=== PATIENT | male | born 1955 | race Caucasian/White ===

== ENCOUNTER → 2022-02-18 12:28 | Outpatient (CLI) | payer MEDICARE, OTHER, SELFPAY ==
--- NOTE | 2022-02-18 | DI.RAD.S_ITS ---
PROCEDURE: XR CERVICAL SPINE 2V OR 3V INDICATIONS: NECK PAIN TECHNIQUE: Three views of the cervical spine were acquired. COMPARISON: None. FINDINGS: Bones: No acute fractures or dislocations to the C7-T1 disc space level. The lateral masses of C1 appear intact on the odontoid view. No suspicious bony lesions. Moderate disc space narrowing is seen at the C5-6 level with mild degenerative endplate changes. Mild to moderate multilevel facet and uncovertebral joint hypertrophy is seen. No cervical ribs. Soft tissues: No prevertebral soft tissue swelling. IMPRESSION: Mild spondylosis. No acute osseous abnormality. If the symptoms persist, consider cross sectional imaging such as MRI or CT for further assessment. Dictated by: David Thacker M.D. on 02/18/2022 at 13:54 Approved by: David Thacker M.D. on 02/18/2022 at 13:55
--- NOTE | 2022-02-18 | DI.RAD.S_ITS ---
PROCEDURE: FL BARIUM SWALLOW INDICATIONS: Dysphagia, unspecified COMPARISON: None. FINDINGS: Function: Contrast passes through the esophagus without delay however poor contractility of the esophagus throughout its course is noted.. Morphology: The thoracic esophagus is patulous and dilated measuring 2-3 cm in diameter with a possible filling defect versus ulceration along the left aspect of the distal esophagus. IMPRESSION: 1. Patulous and dilated adynamic esophagus. Considerations include scleroderma. No obstruction at the gastroesophageal junction. 2. Filling defect suggesting a mass versus ulceration on the left margin of the distal 3rd of the esophagus. 3. Recommend endoscopy. Dictated by: Hugo Loera M.D. on 02/19/2022 at 14:36 Approved by: Hugo Loera M.D. on 02/19/2022 at 16:55
== END ==
PROVIDERS: PCP Internal Medicine; Referring Provider Internal Medicine; Visit Provider Internal Medicine
DX: M47.812 Spondylosis without myelopathy or radiculopathy, cervical region (principal); K22.89 Other specified disease of esophagus; R13.10 Dysphagia, unspecified; M54.2 Cervicalgia
CPT/HCPCS: 72040; 74220

== ENCOUNTER → 2022-03-14 13:08 | Outpatient (CLI) | payer MEDICARE, OTHER, SELFPAY ==
[2022-03-14 14:51] LABS: COVID19 -Nasal RAPID Negative (Negative)
== END ==
PROVIDERS: PCP Internal Medicine; Visit Provider Surgery
DX: Z01.812 Encounter for preprocedural laboratory examination (principal); Z20.822 Contact with and (suspected) exposure to COVID-19
CPT/HCPCS: 87635; C9803

== ENCOUNTER 2022-03-17 11:09 | Day surgery (SDC) | payer MEDICARE, OTHER, SELFPAY ==
[2022-03-17] VITALS (7 sets, daily range): BP systolic 98–129; BP diastolic 61–78; PULSE 60–69; RESP 12–16; TEMP 36–36.6; O2SAT 95–100; BMI 26.2
--- NOTE | 2022-03-17 | PATH_ITS ---
[facility] Accession Number: [id number] . 01 Material submitted: . PART A: esophagus - DISTAL ESOPHAGUS PART B: esophagus - MID ESOPHAGUS . 01 Diagnosis: A. Distal Esophagus: Columnar mucosa with specialized intestinal metaplasia, consistent with Burns's esophagus. Negative for dysplasia and malignancy. . B. Mid Esophagus: Columnar mucosa with specialized intestinal metaplasia, consistent with Burns's esophagus. Negative for dysplasia and malignancy. V 03/19/2022 0906 Local . 01 Electronically signed: . Yomaira Castaneda MD, Pathologist NPI- [id number] . 01 Gross description: . Part A: DISTAL ESOPHAGUS: Received in formalin are 2 fragment(s) of stahl, soft tissue measuring 0.5 x 0.3 x 0.2 cm to 0.3 x 0.2 x 0.1 cm submitted entirely in 1 cassette(s) Part B: MID ESOPHAGUS: Received in formalin are 4 fragment(s) of stahl, soft tissue measuring 0.3 x 0.2 x 0.1 cm to 0.1 x 0.1 x 0.1 cm submitted entirely in 1 cassette(s) /QBJ 03/18/2022 0825 Local . 01 Pathologist provided ICD-10: K59.00, K22.70 . 01 CPT . 385345, 441650 Specimen Comment: A courtesy copy of this report has been sent to [phone] Performed at: 01 [facility] [address] [place] [id number] MD Low Saab MD Phone: [phone]
[2022-03-17] MEDS: SODIUM CHLORIDE 0.9% 1,000 ML 150 ML IV (11:36)
--- NOTE | 2022-03-17 12:12 | PM.HP.1 ---
History of Present Illness History of Present Illness Date Patient Seen: 03/17/22 Time Patient Seen: 12:12 Chief complaint: EGD W/ Biopsy Narrative: I reviewed my office note from March 04. That time he was initiated on twice daily omeprazole. He is doing very well in almost asymptomatic at this point. Patient History Medical History Abnormal esophagram Back pain Chest pain Constipation Family & Social History Social History: household members spouse Tobacco & Substance use: Smoking Status Never smoker alcohol intake frequency a few times a week Substance Use Type does not use Meds Home Medications and Allergies Home Medications Medication Instructions Recorded Confirmed Type cyclobenzaprine 5 mg tablet 5 mg PO BEDTIME PRN 03/17/22 03/17/22 History omeprazole 20 mg capsule,delayed 20 mg PO BID 03/17/22 03/17/22 History release Allergies Allergy/AdvReac Type Severity Reaction Status Date / Time erythromycin base AdvReac Mild Gastrointestinal Verified 03/17/22 11:22 Upset Review of Systems Review of Systems ROS: Yes All systems reviewed with the patient and are negative except as otherwise documented Exam Vital Signs (past 8 hours): - 03/17/22 11:38 Temperature 96.8 F L Pulse Rate 64 Respiratory Rate 16 Blood Pressure 129/78 Pulse Oximetry 98 Oxygen Delivery Method Room Air Const General: cooperative and comfortable Orientation: alert HENMT Head: normocephalic Ears: external ears normal Nose: external nose normal Face and sinus: normal facial exam Mouth: oral mucosae normal Eyes General: appearance normal, both eyes and all related structures Neck Neck: normal visual inspection Chest Chest: normal inspection of the chest Resp Effort & Inspection: normal respiratory effort Cardio Rate: regular rate GI Inspection: normal to inspection Skin General: no rashes or lesions noted and No jaundice Neuro General: patient alert and moves all extremities Cognition: normal cognition Speech: speech normal Extrem General: no pedal edema Psych Appearance: grossly normal Assessment & Plan Assessment & Plan narrative: 66-year-old male with chest pain and an abnormal barium esophagram. Diagnostic EGD is pursued today. Time Spent With Patient Critical Care time: I spent a total of [] minutes of critical care time on this patient's care today; this time is exclusive of procedural time.
--- NOTE | 2022-03-17 12:14 | PM.PREOP ---
Pre-operative Note COVID-19 COVID-19 status: Negative Result date/Date tested (Pos, Neg/Pending): 03/14/22 Criteria for continued procedure: Possibility delay results in more complex future surgery or treatment Interval Note History & Physical reviewed/Exam performed by Physician: Yes Changes to H&P: Yes ASA Class (for procedural sedation): II
--- NOTE | 2022-03-17 12:50 | P.OP.EGD_ITS ---
Operative Date/Time/Diagnoses Date of procedure: 03/17/22 Time of procedure: 12:50 Pre-op diagnosis: Chest pain and an abnormal barium esophagram Post-op diagnosis: same Procedure & Clinicians Study performed: EGD with biopsies Same procedure as scheduled: Yes Indications: Chest pain and an abnormal barium esophagram Surgeon: Angel Luis Bonner Procedure Notes SCOAP/Timeout: Done Procedure in detail: After the risks and benefits were explained, written and verbal informed consent was obtained. The patient was brought into the procedure room and placed into the left lateral decubitus position. Please see nurse bowling floor manager notes for sedation details. The scope was introduced into the mouth through the bite block and advanced under direct visualization to the 2nd portion of the duodenum. The scope was slowly withdrawn carefully examining the mucosa for any defects or lesions. Retroflexed views were accomplished in the stomach. The stomach was decompressed, the scope was then removed from the patient who dallin erated the procedure well. Sedation minutes: 17 Complications: none Impression: 1. Duodenum: The mucosa was generally unremarkable from the bulb through into the 2nd portion. 2. Stomach: The pyloric channel was easily identified and widely patent. No associated mass or outlet obstruction. However the remainder of the stomach was very difficult to visualize. The patient simply would not retain any air and insufflation seemed impossible. I could not therefore proceed with the normal retroflexed views. I did not get a nice distended view during today's examination. Within these limitations I did not see any overt gastric pathology. 3. Esophagus: The patient had what appeared to be an exceptionally long segment of Barretts. The GE junction was at approximately 32 cm. The Barretts would be judged C13M14. Biopsies were taken from the proximal esophagus just below the upper esophageal sphincter mechanism for histopathologic confirmation of Barretts. In the left aspect of the distal esophagus there was a large ulcer going from approximately 29 cm from the incisors down to the GE junction. This had scattered areas of hyperpigmentation in the base. No obvious visible vessel. No bleeding. The edges were fairly heaped up but generally soft under the biopsy forceps. Multiple biopsies were taken from the ulcer edges. Endoscopic diagnosis 1. Large distal esophageal ulcer 2. Hiatal hernia (the precise size of set hiatal hernia was not easy to gauge with the patient's inability to retain air) 3. Long segment Barretts Post-procedure Plan for aftercare: 1. Await histopathology 2. Continue omeprazole twice daily. 3. Soft diet. 4. Contingent on histopathology further abdominal imaging and even likely endoscopic ultrasound will be required here. Disposition: PACU
--- NOTE | 2022-03-17 18:12 | SUR.PHASEII ---
Late entry: Pt slow to wake, left when ready, left in stable condition.
== END 2022-03-17 14:15 | disposition home or self-care (01) ==
PROVIDERS: PCP Internal Medicine; Referring Provider Internal Medicine Gastroenterology; Visit Provider Internal Medicine Gastroenterology
PROC: 0DJ08ZZ Inspection of Upper Intestinal Tract, Via Natural or Artificial Opening Endoscopic (ICD-10-PCS; CPT 43235; principal; 2022-03-17 12:30)
DX: R94.8 Abnormal results of function studies of other organs and systems (principal); R07.9 Chest pain, unspecified; K22.70 Barrett's esophagus without dysplasia; K44.9 Diaphragmatic hernia without obstruction or gangrene
CPT/HCPCS: 43239; J2704

== ENCOUNTER → 2022-03-27 13:50 | Outpatient (CLI) | payer MEDICARE, OTHER, SELFPAY ==
--- NOTE | 2022-03-27 | DI.MRI.S_ITS ---
PROCEDURE: MR CERVICAL SPINE WO CON INDICATIONS: Dorsalgia, unspecified TECHNIQUE: Noncontrast sagittal T1 spin echo and T2 fast spin echo, sagittal STIR, foraminal oblique sagittal T2 fast spin echo, and axial gradient echo or T2 fast spin echo through the cervical spine. COMPARISON: None. FINDINGS: Normal cervical spine vertebral body height and alignment. No suspicious focal marrow signal abnormality. Osteoarthritic changes of the right C3-C4 facet characterized by joint space narrowing and marginal osteophytosis with subchondral sclerosis as well as marrow edema adjacent to the right C3-C4 facets involving the facet pillars and extending into the pedicles. There is also edema of the adjacent periarticular soft tissues. Normal morphology and signal intensity of the cervical cord. There is no syrinx. Regional soft tissues demonstrate no acute abnormality in the absence of IV contrast. C2-C3: No spinal canal stenosis. Facet and uncovertebral hypertrophy combine to produce mild neural foraminal narrowing on the right. C3-C4: No spinal canal stenosis. Facet and uncovertebral hypertrophy combine to produce moderate neural foraminal narrowing bilaterally. C4-C5: No spinal canal stenosis. Facet and uncovertebral hypertrophy combine to produce moderate right and mild left neural foraminal stenosis. C5-C6: Mild spinal canal stenosis due to posterior disc osteophyte complex and calcified buckling of the ligamentum flavum. Facet and uncovertebral hypertrophy combine to produce severe left and mild-moderate right neural foraminal stenosis. C6-C7: No spinal canal stenosis. Moderate bilateral neural foraminal stenosis due to facet and uncovertebral hypertrophy. C7-T1: No spinal canal or neural foraminal stenosis. IMPRESSION: Mild spinal canal stenosis at C5-C6 due to posterior disc osteophyte complex and calcified buckling of the ligamentum flavum. Varying degrees of neural foraminal stenosis up to moderate, detailed above. Correlate for any corresponding radicular symptoms. Right C3-C4 facet osteoarthritis with associated periarticular bone marrow and soft tissue edema, suggestive of acute facet osteoarthropathy which can be a source of nonradicular axial neck pain. Dictated by: Shaheen Mane M.D. on 03/27/2022 at 15:01 Approved by: Shaheen Mane M.D. on 03/27/2022 at 15:06
== END ==
PROVIDERS: PCP Internal Medicine; Referring Provider Physical Medicine & Rehabilitation Pain Medicine; Visit Provider Physical Medicine & Rehabilitation Pain Medicine
DX: M47.812 Spondylosis without myelopathy or radiculopathy, cervical region (principal); M48.02 Spinal stenosis, cervical region; M54.9 Dorsalgia, unspecified
CPT/HCPCS: 72141

== ENCOUNTER → 2022-06-09 10:24 | Outpatient (CLI) | payer MEDICARE, OTHER, SELFPAY ==
[2022-06-09 12:07] LABS: COVID19 -Nasal RAPID Negative (Negative)
== END ==
PROVIDERS: PCP Internal Medicine; Visit Provider Surgery
DX: Z20.822 Contact with and (suspected) exposure to COVID-19 (principal); Z01.812 Encounter for preprocedural laboratory examination
CPT/HCPCS: 87635; C9803

== ENCOUNTER 2022-06-11 07:25 | Day surgery (SDC) | payer MEDICARE, OTHER, SELFPAY ==
--- NOTE | 2022-06-11 | PATH_ITS ---
[facility] Accession Number: [id number] No. of containers.. Tissue . 01 Material submitted: . PART A: esophagus - ESOPHAGEAL PLAQUES PART B: esophagus - BIOPSY 20 CM PART C: esophagus - BIOPSY 22 CM PART D: esophagus - BIOPSY 24 CM PART E: esophagus - BIOPSY 26 CM PART F: esophagus - BIOPSY 28 CM PART G: esophagus - BIOPSY 30 CM PART H: esophagus - BIOPSY 32 CM PART I: esophagus - BIOPSY 33 CM . 01 Clinical history: . A: R/O SAMIRA B-F: HISTORY OF DUARTE'S G-H: HX DUARTE'S @ [facility] I: HISTORY OF DUARTE'S . 01 Diagnosis: A. Esophageal Plaques, Biopsies: Samira esophagitis. Yeast forms and scant fungal hyphae morphologically consistent with Samira species seen on H/E stain. Negative for dysplasia or malignancy. . B-C: Esophagus, 20-22 cm, Biopsies: Squamocolumnar junctional mucosa with specialized intestinal metaplasia, consistent with Duarte's esophagus. Negative for dysplasia and malignancy. . D-I: Esophagus, 24-33 cm, Biopsies: Proximal gastric-type mucosa with specialized intestinal metaplasia, consistent with Duarte's esophagus. Negative for dysplasia and malignancy. [facility] 06/12/2022 0932 Local . 01 Electronically signed: . Sunday Barillas MD, PhD, Pathologist NPI- [id number] . 01 Gross description: . Part A: ESOPHAGEAL PLAQUES: Received in formalin is 1 fragment(s) of stahl, soft tissue measuring 0.2 x 0.2 x 0.2 cm submitted entirely in 1 cassette(s) Part B: BIOPSY 20 CM: Received in formalin is 1 fragment(s) of stahl, soft tissue measuring 0.2 x 0.1 x 0.1 cm submitted entirely in 1 cassette(s) Part C: BIOPSY 22 CM: Received in formalin are 4 fragment(s) of stahl, soft tissue measuring 0.1 x 0.1 x 0.1 cm to 0.2 x 0.2 x 0.2 cm submitted entirely in 1 cassette(s) Part D: BIOPSY 24 CM: Received in formalin are 3 fragment(s) of stahl, soft tissue measuring 0.1 x 0.1 x 0.1 cm to 0.3 x 0.2 x 0.1 cm submitted entirely in 1 cassette(s) Part E: BIOPSY 26 CM: Received in formalin are 2 fragment(s) of stahl, soft tissue measuring 0.1 x 0.1 x 0.1 cm to 0.3 x 0.3 x 0.2 cm submitted entirely in 1 cassette(s) Part F: BIOPSY 28 CM: Received in formalin are 3 fragment(s) of stahl, soft tissue measuring 0.1 x 0.1 x 0.1 cm to 0.3 x 0.3 x 0.2 cm submitted entirely in 1 cassette(s) Part G: BIOPSY 30 CM: Received in formalin are 3 fragment(s) of stahl, soft tissue measuring 0.1 x 0.1 x 0.1 cm to 0.3 x 0.3 x 0.2 cm submitted entirely in 1 cassette(s) Part H: BIOPSY 32 CM: Received in formalin are 3 fragment(s) of stahl, soft tissue measuring 0.1 x 0.1 x 0.1 cm to 0.3 x 0.2 x 0.2 cm submitted entirely in 1 cassette(s) Part I: BIOPSY 33 CM: Received in formalin are 3 fragment(s) of stahl, soft tissue measuring 0.1 x 0.1 x 0.1 cm to 0.2 x 0.2 x 0.2 cm submitted entirely in 1 cassette(s) /ROJELIO 06/11/2022 2249 Local . 01 Pathologist provided ICD-10: K22.70, B37.81 . 01 CPT . 749111, 693772, 684400, 844594, 994977, 346243, 602932, 932912, 841505 Specimen Comment: A courtesy copy of this report has been sent to [phone] Performed at: 01 [facility] [address] [place] [address], [place] [id number] MD Low Saab MD Phone: [phone]
[2022-06-11 07:55] VITALS: BP 111/65; PULSE 55; RESP 16; TEMP 36.1; O2SAT 98; BMI 24.6
[2022-06-11] MEDS: LACTATED RINGERS 1,000 ML 42 ML IV (08:12)
--- NOTE | 2022-06-11 08:33 | PM.HP.1 ---
History of Present Illness History of Present Illness Chief complaint: EGD Patient History Medical History (Updated 06/11/22 @ 08:17 by Ritu Hair RN) Abnormal esophagram Back pain Burns's esophageal ulceration Chest pain Constipation Epididymo-orchitis Nasal polyps Family & Social History Social History: household members spouse Tobacco & Substance use: Smoking Status Never smoker alcohol intake frequency holiday/special occasion Substance Use Type does not use Meds Home Medications and Allergies Home Medications Medication Instructions Recorded Confirmed Type cyclobenzaprine 5 mg tablet 5 mg PO BEDTIME PRN Muscle 03/17/22 06/11/22 History Relaxation omeprazole 20 mg capsule,delayed 20 mg PO BID 03/17/22 06/11/22 History release Allergies Allergy/AdvReac Type Severity Reaction Status Date / Time erythromycin base AdvReac Mild Gastrointestinal Verified 06/11/22 07:28 Upset Review of Systems Review of Systems Narrative: negative Exam Vital Signs (past 8 hours): - 06/11/22 07:55 Temperature 97.0 F L Pulse Rate 55 L Respiratory Rate 16 Blood Pressure 111/65 Pulse Oximetry 98 Oxygen Delivery Method Room Air Oxygen Delivery Method Room Air Narrative Exam Narrative: Awake alert and oriented x3, pupils equal round reactive to light, oropharynx clear, heart regular rate and rhythm, lungs clear to auscultation bilaterally, abdomen nontender and nondistended, extremities without edema, no gross neurologic deficits noted Assessment & Plan Assessment & Plan narrative: history of Burns's and esophageal ulcer for EGD Time Spent With Patient Critical Care time: I spent a total of [] minutes of critical care time on this patient's care today; this time is exclusive of procedural time.
--- NOTE | 2022-06-11 09:02 | PM.OP.EGD ---
Operative Date/Time/Diagnoses Date of procedure: 06/11/22 Procedure & Clinicians Study performed: EGD with cold biopsy Indications: History of Burns's and nonhealing esophageal ulcer Procedure Notes Procedure in detail: Prior to the procedure, history and physical was performed, and patient medications and allergies were reviewed. Preprocedure nursing history and assessment was reviewed. Patient identification and proposed procedure were verified by the physician and nurse in the procedure room. The physical status of the patient was reassessed after the procedure. After informed consent was obtained including risks, benefits, and alternatives, the scope was passed under direct vision. Throughout the procedure, the patient's blood pressure, pulse, and oxygen saturations were monitored continuously. The upper endoscope was introduced through the mouth and advanced to the 2nd portion of the duodenum. Retroflexion was performed in the stomach. The patient tolerated the procedure well. White plaques suspicious for Samira were noted in the upper 3rd of the esophagus. This was biopsied The proximal extent of Burns's mucosa was noted at 20 cm. A single tongue of Burns's mucosa extended from 20 to 22 cm. In the lower 3rd of the esophagus, a scar consistent with healed ulcer was noted. No other mucosal irregularities were noted in this region. The top of the gastric folds was noted at 33 cm. [place] classification C11M13. Using [place] protocol, biopsies were taken using a cold forceps in 4 quadrants every 1-2 cm. Targeted biopsies were taken from around the scar in the distal 3rd. And placed in jars 30cm and 32cm. The stomach was difficult to fully insufflate, concerning for presence of a paraesophageal hernia. Measurements of the size of the hernia could not be obtained. The entire examined duodenum was normal appearing Complications: other (EBL minimal. No complications) Impression: White plaques noted in the upper 3rd of the esophagus concerning for Samira. Biopsied Long segment Burns's esophagus. [place] classification C11M13. Biopsied. Healed esophageal ulcer. Biopsied Hiatal hernia and Probable paraesophageal hernia. Unable to fully insufflate and examined the gastric mucosa Normal appearing duodenum Post-procedure Plan for aftercare: Follow-up biopsy results Resume home medications Resume previous diet Anti-reflux precautions Follow-up in GI clinic in 2-4 weeks Patient has a contact number available for emergencies. The signs and symptoms of potential delayed complications were discussed with the patient. Return to normal activities tomorrow. Written discharge instructions were provided to the patient. Discharge home with escort
[2022-06-11 09:10] VITALS: BP 89/54; PULSE 56; RESP 12; TEMP 35.6; O2SAT 95
[2022-06-11 09:15] VITALS: BP 92/57; BP 92/58; PULSE 54; PULSE 55; RESP 12; RESP 15; TEMP 36.1; O2SAT 93; O2SAT 95
[2022-06-11 09:24] VITALS: BP 94/60; PULSE 52; RESP 14; TEMP 36.3; O2SAT 94
[2022-06-11 09:37] VITALS: BP 112/74; PULSE 55; RESP 12; TEMP 36.4; O2SAT 95
--- NOTE | 2022-06-11 09:38 | SUR.PHASEII ---
Patient denied pain. Spouse Ling updated with patient status by phone.
[2022-06-11 10:13] VITALS: BP 111/70; PULSE 47; RESP 16; TEMP 36.3; O2SAT 96
== END 2022-06-11 10:13 | disposition home or self-care (01) ==
PROVIDERS: PCP Internal Medicine; Referring Provider Internal Medicine; Visit Provider Internal Medicine
PROC: 0DJ08ZZ Inspection of Upper Intestinal Tract, Via Natural or Artificial Opening Endoscopic (ICD-10-PCS; CPT 43235; principal; 2022-06-11 08:30)
DX: B37.81 Candidal esophagitis (principal); K22.70 Barrett's esophagus without dysplasia; K44.9 Diaphragmatic hernia without obstruction or gangrene
CPT/HCPCS: 43239; J2704; J3010

== ENCOUNTER → 2022-08-01 12:26 | Outpatient (CLI) | payer MEDICARE, OTHER, SELFPAY ==
--- NOTE | 2022-08-01 | DI.RAD.S_ITS ---
PROCEDURE: FL BARIUM SWALLOW INDICATIONS: Ulcer of esophagus without bleeding COMPARISON: [facility], CT, CT CHEST WITHOUT CONTRAST, 08/10/2020, 7:42. [facility], RF, FL BARIUM SWALLOW, 02/18/2022, 12:57. [facility], MR, MR CERVICAL SPINE WO CON, 03/27/2022, 14:03. FINDINGS: Function: There is normal esophageal peristalsis. There is moderate gastroesophageal reflux. There is normal transit of a calibrated barium tablet through the esophagus into the stomach. Morphology: The esophagitis is patulous, dilated to the level of GE junction. GE junction is slightly irregular but no obstruction of liquid content or the calibrated barium tablet. Overall, the appearance is unchanged from the last exam. No extrinsic mass effects or diverticula. There is a small hiatal hernia. Limited images of the stomach demonstrate normal appearance. IMPRESSION: 1. Patulous esophagus with dilation to the level of gastroesophageal junction. The gastroesophageal junction is slightly irregular. No esophageal obstruction. 2. Moderate gastroesophageal reflux. 3. Small hiatal hernia. Dictated by: Yulissa Branch M.D. on 08/01/2022 at 13:18 Approved by: Yulissa Branch M.D. on 08/01/2022 at 13:22
== END ==
PROVIDERS: PCP Internal Medicine; Referring Provider Internal Medicine Gastroenterology; Visit Provider Internal Medicine Gastroenterology
DX: K22.10 Ulcer of esophagus without bleeding (principal); K22.89 Other specified disease of esophagus; K44.9 Diaphragmatic hernia without obstruction or gangrene; K21.9 Gastro-esophageal reflux disease without esophagitis
CPT/HCPCS: 74220

== ENCOUNTER 2023-09-09 13:30 | Day surgery (SDC) | payer MEDICARE, OTHER, SELFPAY ==
[2023-09-09] VITALS (7 sets, daily range): BP systolic 93–126; BP diastolic 55–83; PULSE 51–61; RESP 12–17; TEMP 36.4–36.7; O2SAT 92–98; BMI 26.1
--- NOTE | 2023-09-09 | PATH_ITS ---
[facility] Accession Number: [id number] No. of containers.. Tissue . 01 Material submitted: . PART A: esophagus - ESOPHAGUS AT 31CM PART B: esophagus - ESOPHAGUS AT 29CM PART C: esophagus - ESOPHAGUS AT 27CM PART D: esophagus - ESOPHAGUS AT 25CM PART E: esophagus - ESOPHAGUS AT 23CM PART F: esophagus - ESOPHAGUS AT 21CM PART G: esophagus - ESOPHAGUS AT 19CM . 01 Diagnosis: A. Esophagus at 31 cm, Biopsy: Burns's esophagus. Negative for dysplasia or malignancy. . B. Esophagus at 29 cm, Biopsy: Burns's esophagus. Negative for dysplasia or malignancy. . C. Esophagus at 27 cm, Biopsy: Burns's esophagus. Negative for dysplasia or malignancy. . D. Esophagus at 25 cm, Biopsy: Burns's esophagus. Negative for dysplasia or malignancy. . E. Esophagus at 23 cm, Biopsy: Burns's esophagus. Negative for dysplasia or malignancy. . F. Esophagus at 21 cm, Biopsy: Burns's esophagus. Negative for dysplasia or malignancy. . G. Esophagus at 19 cm, Biopsy: Burns's esophagus. Negative for dysplasia or malignancy. [facility] 09/18/2023 1310 Local . 01 Electronically signed: . Luda Mckenna MD, Pathologist NPI- [id number] . 01 Gross description: . Part A: ESOPHAGUS AT 31CM: Received in formalin is multiple fragment(s) of stahl, soft tissue measuring 1.0 x 0.5 x 0.1 cm in aggregate submitted entirely in 1 cassette(s) Part B: ESOPHAGUS AT 29CM: Received in formalin is multiple fragment(s) of stalh, soft tissue measuring 0.8 x 0.4 x 0.1 cm in aggregate submitted entirely in 1 cassette(s) Part C: ESOPHAGUS AT 27CM: Received in formalin is 3 fragment(s) of stahl, soft tissue measuring 0.3 x 0.2 x 0.1 cm to 0.2 x 0.2 x 0.1 cm submitted entirely in 1 cassette(s) Part D: ESOPHAGUS AT 25CM: Received in formalin is 3 fragment(s) of stahl, soft tissue measuring 0.2 x 0.2 x 0.1 cm to 0.2 x 0.1 x 0.1 cm submitted entirely in 1 cassette(s) Part E: ESOPHAGUS AT 23CM: Received in formalin is 3 fragment(s) of stahl, soft tissue measuring 0.3 x 0.2 x 0.2 cm to 0.2 x 0.2 x 0.1 cm submitted entirely in 1 cassette(s) Part F: ESOPHAGUS AT 21CM: Received in formalin is multiple fragment(s) of stahl, soft tissue measuring 0.6 x 0.3 x 0.1 cm in aggregate submitted entirely in 1 cassette(s) Part G: ESOPHAGUS AT 19CM: Received in formalin is 1 fragment(s) of stahl, soft tissue measuring 0.2 x 0.2 x 0.1 cm submitted entirely in 1 cassette(s) /[facility] 09/10/2023 0439 Local . 01 Pathologist provided ICD-10: K22.70 . 01 CPT . 713609, 086552, 307123, 284893, 358429, 876778, 455082 Specimen Comment: A courtesy copy of this report has been sent to [phone] Performed at: 01 [facility] [address] [place] [address] [address] [facility], [place], [place] [id number] MD Low Saab MD Phone: [phone]
[2023-09-09] MEDS: LACTATED RINGERS 1,000 ML 42 ML IV (14:02)
--- NOTE | 2023-09-09 14:43 | P.HP_ITS ---
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 Previously extensive workup for large distal ulceration on the background of Burns's [id number]. This was documented to have healed and he also had endoscopic ultrasound help prove no local disease. He now returns for follow-up for surveillance with multiple biopsies and to prove that there is continued healing of the ulceration on medication. [facility] Medical History (Updated 06/11/22 @ 08:17 by Ritu Hair RN) Epididymo-orchitis Nasal polyps Burns's esophageal ulceration Abnormal esophagram Constipation Back pain Chest pain Social History household members: spouse Smoking Status: Never smoker alcohol intake: current Meds Home Medications and Allergies Home Medications Medication Instructions Recorded Confirmed Type cyclobenzaprine 5 mg tablet 5 mg PO BEDTIME PRN Muscle 03/17/22 09/09/23 History Relaxation omeprazole 20 mg capsule,delayed 40 mg PO BID 03/17/22 09/09/23 History release Allergies Allergy/AdvReac Type Severity Reaction Status Date / Time erythromycin base AdvReac Severe Gastrointestinal Verified 09/09/23 13:47 Upset Exam Vital Signs (past 8 hours): - 09/09/23 13:54 Temperature 98.0 F Pulse Rate 58 L Respiratory Rate 17 Blood Pressure 121/74 Pulse Oximetry 97 Oxygen Delivery Method Room Air Oxygen Delivery Method Room Air Narrative Exam Narrative: Oropharynx free of lesions Chest clear to auscultation percussion Cardiac exam reveals no S3 or murmur Assessment & Plan Assessment & Plan narrative: Extensive long segment Burns's with previous history of difficulty heel ulceration, which was finally documented to have healed. Need for follow-up EGD with multiple biopsies for surveillance. Risks, benefits, alternatives have been explained
--- NOTE | 2023-09-09 14:46 | PM.OP.EGD ---
Operative Date/Time/Diagnoses Date of procedure: 09/09/23 Pre-op diagnosis: See indication and findings Procedure & Clinicians Study performed: EGD with biopsy Indications: Long segment Burns's esophagus surveillance Surgeon: Trevor Davis Procedure Notes Procedure in detail: After informed consent was obtained the patient was placed in left lateral decubitus position. The video upper scope was placed into the oropharynx and with the patient's help swelled into the esophagus. The esophagus stomach and duodenum were carefully examined. On withdrawal retroflexed view the GE junction was performed. The scope was removed. The patient tolerated procedure well. Blood loss none Complications none Sedation mac Findings 1. Extensive long segment Burns's. The upper border was well defined by squamous mucosa. The upper border had 1 tongue of tissue measuring 1-2 cm in length. This was biopsied and labeled 19. Biopsies were then taken every 2 cm with 4 quadrant biopsies. These were labeled 21, 23, 25, 27, 29, and 31. While the distal border was more indistinct I used the numbers from Dr. Monique byrd upper endoscopy to guide us. This level at 31 cm seem to correspond to the diaphragmatic hiatus. 2. Large paraesophageal hernia 3. Normal distal stomach 4. Normal duodenal bulb and sweep Will merely await the biopsy results. He should remain on his medication. Ulceration is totally healed.
== END 2023-09-09 15:58 | disposition home or self-care (01) ==
PROVIDERS: PCP Internal Medicine; Referring Provider Internal Medicine Gastroenterology; Visit Provider Internal Medicine Gastroenterology
PROC: 0DJ08ZZ Inspection of Upper Intestinal Tract, Via Natural or Artificial Opening Endoscopic (ICD-10-PCS; CPT 43235; principal; 2023-09-09 14:30)
DX: K22.70 Barrett's esophagus without dysplasia (principal); K44.9 Diaphragmatic hernia without obstruction or gangrene
CPT/HCPCS: 43239; J2704

== ENCOUNTER 2024-08-31 10:20 | Day surgery (SDC) | payer MEDICARE, OTHER, SELFPAY ==
[2024-08-31] VITALS (7 sets, daily range): BP systolic 100–120; BP diastolic 67–79; PULSE 65–73; RESP 11–18; TEMP 36.1–36.4; O2SAT 95–97
--- NOTE | 2024-08-31 | PATH_ITS ---
[facility] Accession Number: [id number] No. of containers..04 Tissue . 01 Material submitted: . PART A: esophagus - ESOPHAGUS, 29 CM PART B: esophagus - ESOPHAGUS, 27 CM PART C: esophagus - ESOPHAGUS, 25 CM PART D: esophagus - ESOPHAGUS, 23 CM . 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 No dysplasia identified. . 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 No dysplasia identified. . 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 No dysplasia identified. . 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 No dysplasia identified. [facility] 09/01/20241920 Local . 01 Electronically signed: . Low Saab MD, Pathologist NPI- [id number] . 01 Gross description: . Part A: ESOPHAGUS, 29 CM: Received in formalin are 3 fragment(s) of stahl, soft tissue measuring 0.3 x 0.3 x 0.2 cm to 0.5 x 0.3 x 0.2 cm submitted entirely in 1 cassette(s) . Part B: ESOPHAGUS, 27 CM: Received in formalin are 3 fragment(s) of stahl, soft tissue measuring 0.2 x 0.2 x 0.2 cm to 0.4 x 0.3 x 0.2 cm submitted entirely in 1 cassette(s) . Part C: ESOPHAGUS, 25 CM: Received in formalin are 3 fragment(s) of stahl, soft tissue measuring 0.2 x 0.2 x 0.2 cm to 0.4 x 0.3 x 0.2 cm submitted entirely in 1 cassette(s) . Part D: ESOPHAGUS, 23 CM: Received in formalin are 3 fragment(s) of stahl, soft tissue measuring 0.2 x 0.2 x 0.2 cm to 0.4 x 0.4 x 0.2 cm submitted entirely in 1 cassette(s) /[facility] 09/01/2024 1921 Local . 01 Pathologist provided ICD-10: K22.70 . 01 CPT . 714084, 508842, 705790, 223744 Specimen Comment: A courtesy copy of this report has been sent to [phone] Performed at: [address] [address], [place], [place] [id number] MD Low Saab MD Phone: [phone]
--- NOTE | 2024-08-31 11:24 | P.HP_ITS ---
History of Present Illness History of Present Illness Chief complaint: EGD Narrative: Long segment Burns's esophagus surveillance [facility] Medical History (Updated 06/11/22 @ 08:17 by Ritu Hair RN) Epididymo-orchitis Nasal polyps Burns's esophageal ulceration Abnormal esophagram Constipation Back pain Chest pain Social History household members: spouse Smoking Status: Never smoker alcohol intake: current Meds Home Medications and Allergies Home Medications Medication Instructions Recorded Confirmed Type cyclobenzaprine 5 mg tablet 5 mg PO BEDTIME PRN Muscle 03/17/22 08/31/24 History Relaxation omeprazole 20 mg capsule,delayed 40 mg PO BID 03/17/22 08/31/24 History release Allergies Allergy/AdvReac Type Severity Reaction Status Date / Time erythromycin base AdvReac Severe Gastrointestinal Verified 08/31/24 10:41 Upset Exam Vital Signs (past 8 hours): - 08/31/24 10:42 Temperature 97.5 F L Pulse Rate 66 Respiratory Rate 18 Blood Pressure 120/75 Pulse Oximetry 97 Oxygen Delivery Method Room Air Oxygen Flow Rate 0 Oxygen Delivery Method Room Air Oxygen Flow Rate 0 Narrative Exam Narrative: Oropharynx free of lesions Chest clear to auscultation percussion Cardiac exam reveals no S3 or murmurs Assessment & Plan Time-Based Coding :: [TOTAL MINUTES] spent with patient and on the chart (including review of chart, obtaining history, exam, reviewing outside data, placing orders, documenting exam and treatment plan, and counseling patient) on [DATE].
--- NOTE | 2024-08-31 11:26 | PM.OP.EGD ---
Operative Date/Time/Diagnoses Date of procedure: 08/31/24 Pre-op diagnosis: See indication and findings Procedure & Clinicians Study performed: EGD with biopsy Indications: Long segment Burns's esophagus Surgeon: Trevor Davis Procedure Notes Procedure in detail: After informed consent was obtained the patient was placed in left lateral decubitus position. The video upper scope was placed into the oropharynx and with the patient's help swallowed into the esophagus. The esophagus stomach duodenal were carefully examined. On withdrawal, retroflexed view the GE junction was performed. The scope was removed. The patient tolerated the procedure well Blood loss none Complications none Sedation mac Findings 1. Long segment Burns's seen. Proximal extent was just below the upper esophageal sphincter at 19 cm. Distal extent was at 29 to 30 cm. Biopsies were taken every 2 cm with 4 circumferential biopsies. These were labeled 29 cm, 27 cm, 25 cm, and 23 cm. 2. Very large and somewhat complex hiatal hernia. Unable to evaluate completely. This was probably 10 cm long. There was significant prolapse of gastric mucosa even up into the proximal segment with Barretts. 3. Normal distal stomach 4. Normal duodenal bulb and sweep To get a better idea of the anatomy of patient's hiatal hernia upper GI might be suggested though I do not think required at this time. He will need follow-up EGD in 1 year. We will be in touch regarding his biopsies.
== END 2024-08-31 12:32 | disposition home or self-care (01) ==
PROVIDERS: Referring Provider Internal Medicine Gastroenterology; Visit Provider Internal Medicine Gastroenterology
PROC: 0DJ08ZZ Inspection of Upper Intestinal Tract, Via Natural or Artificial Opening Endoscopic (ICD-10-PCS; CPT 43235; principal; 2024-08-31 11:30)
DX: K22.70 Barrett's esophagus without dysplasia (principal); K44.9 Diaphragmatic hernia without obstruction or gangrene
CPT/HCPCS: 43239; J2704

== ENCOUNTER 2025-09-12 10:44 | Day surgery (SDC) | payer MEDICARE, OTHER, SELFPAY ==
[2025-09-01 10:15] VITALS: BMI 25.5
--- NOTE | 2025-09-12 | PATH_ITS ---
[facility] Accession Number: [id number] No. of containers..02 Tissue . 01 Material submitted: . PART A: stomach - ANTRAL PART B: esophagus - ESOPHAGUS . 01 Diagnosis: Part A: ANTRAL: Gastric mucosa with mild chronic inflammation and focal intestinal metaplasia. No Helicobacter organisms identified. No dysplasia or malignancy identified. . 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 No dysplasia identified. [facility] 09/21/20251334 Local . 01 Electronically signed: . Low Saab MD, Pathologist NPI- [id number] . 01 Gross description: . . . . Received are two formalin-filled containers both labeled with the patient's name. . A. In a container labeled antral. The specimen consists of one fragment of stahl, soft tissue which measures 0.3 x 0.2 x 0.2 cm. The specimen is totally submitted in cassette A1. . B. In a container labeled esophageal. The specimen consists of four fragments of stahl, soft tissue which range in size from less than 0.1 cm to 0.5 x 0.2 x 0.1 cm. The specimen is totally submitted in cassette B1. ([id number]) /[facility] 09/21/20251334 Local . 01 Microscopic: . Part A: ANTRAL: An immunohistochemical stain was performed to evaluate for Helicobacter organisms and is negative. The control stains appropriately. * This test was developed and the performance characteristics were validated by [employer]. It has not been cleared or approved by the Food and Drug Administration. . 01 Pathologist provided ICD-10: K22.70, K29.50 . 01 CPT . 017810, 996821 Specimen Comment: A courtesy copy of this report has been sent to [facility] Performed at: [address] [facility], [place], [place] [id number] MD Low Saab MD Phone: [phone]
--- NOTE | 2025-09-12 07:02 | PM.PREOP ---
Pre-operative Note Interval Note History & Physical reviewed/Exam performed by Physician: Yes Changes to H&P: No ASA Class (for procedural sedation): II
[2025-09-12] MEDS: LACTATED RINGERS 1,000 ML 42 ML IV (11:23)
[2025-09-12 11:32] VITALS: BP 113/66; PULSE 57; RESP 22; TEMP 36.3; O2SAT 100
--- NOTE | 2025-09-12 11:55 | P.OP.EGD&C_ITS ---
Operative Date/Time/Diagnoses Date of procedure: 09/12/25 Time of procedure: 12:46 Pre-op diagnosis: H/O Burns's (without dysplasia), due for screening colonoscopy Post-op diagnosis: same (Large hiatal hernia) Procedure & Clinicians Study performed: EGD with biopsy, screening colonoscopy Same procedure(s) as scheduled: Yes Indications: 69yo M, h/o Barretts, due for screening colonoscopy Surgeon: Yoshi Triplett Anesthesia Type: MAC +/- Procedure Notes SCOAP/Timeout: Performed Procedure in detail: EGD Informed consent was obtained. The procedure, its risks, benefits, and alternatives were discussed. Patient understood and agreed to proceed. The patient was placed in the left lateral decubitus position with head elevated. Sedation given per anesthesia. The video endoscope was inserted into the oropharynx and guided under direct vision into the esophagus, stomach, and duodenum which were carefully examined. The scope was retroflexed to examine the hiatus and gastroesophageal junction. Antral biopsies were obtained for Helicobacter pylori. The patient tolerated the procedure very well. There were no apparent complications. Significant EGD findings: Z-line noted at: approximately 30cm, difficult to discern GE junction Large volume of bile in esophagus Distal esophagus dilated Patulous hiatus Large hiatal hernia approximately 8cm No linear streaks of esophagitis, but generally inflamed circumferentially, 4 quadrant biopsies taken Mild antral gastritis, biopsies taken for H pylori Large volume of bile in stomach body Duodenum normal No ulcers or polyps in duodenum, stomach or esophagus Colonoscopy Patient placed in left lateral recumbent position. Time out was performed. Procedural sedation was administered by anesthesia. Examination began with a thorough inspection of the perianal area. There was no evidence of fissures, fistulae, external hemorrhoids or cutaneous malignancy. The colonoscope was then placed into the rectum and the lumen was insufflated with carbon dioxide. The scope was carefully advanced forward. Ultimately the cecum was intubated and confirmed by identification of the ileocecal valve, the appendiceal orifice and the confluence of the taenia. The scope was then slowly withdrawn examining the colon thoroughly in all directions. In the rectum, retroflexion of the scope was performed for inspection of the distal rectum and anal canal. ?Significant colonoscopy findings: ?1. Quality of the preparation-good, [place] 2-3, improved with irrigation/suction ?2. No polyps, mass, or stricture 3. Few scattered sigmoid diverticulae 4. Small to medium sized internal hemorrhoids Scope withdrawal time: 6 minutes Findings: gastritis, hiatal hernia and internal hemorrhoids Specimen(s): other (gastroesophageal biopsies) Estimated Blood Loss: 5 Complications: none Impression: Large hiatal hernia with large amount of bile in proximal esophagus Dilated distal esophagus with generalized esophagitis rather than linear disease Few sigmoid diverticulae Internal hemorrhoids Post-procedure Recommendations: Colonscopy in 10 years Plan for aftercare: PACU then home Follow up: as needed Disposition: PACU
[2025-09-12 12:37] VITALS: BP 120/69; PULSE 59; RESP 14; TEMP 36.1; O2SAT 95
[2025-09-12 12:42] VITALS: BP 125/64; PULSE 58; RESP 16; O2SAT 95
[2025-09-12 12:47] VITALS: BP 118/68; PULSE 56; RESP 16; O2SAT 96
[2025-09-12 12:52] VITALS: BP 118/78; PULSE 60; RESP 16; TEMP 36.6; O2SAT 98
== END 2025-09-12 13:36 | disposition home or self-care (01) ==
PROVIDERS: PCP Family Medicine; Referring Provider Family Medicine; Visit Provider Surgery
PROC: 0DJ08ZZ Inspection of Upper Intestinal Tract, Via Natural or Artificial Opening Endoscopic (ICD-10-PCS; CPT 43239; principal; 2025-09-12 12:30)
PROC: 0DJD8ZZ Inspection of Lower Intestinal Tract, Via Natural or Artificial Opening Endoscopic (ICD-10-PCS; CPT 45378; 2025-09-12 12:30)
DX: Z12.11 Encounter for screening for malignant neoplasm of colon (principal); Z87.19 Personal history of other diseases of the digestive system; K44.9 Diaphragmatic hernia without obstruction or gangrene; K57.30 Diverticulosis of large intestine without perforation or abscess without bleeding; K64.8 Other hemorrhoids; K29.50 Unspecified chronic gastritis without bleeding; K22.70 Barrett's esophagus without dysplasia
CPT/HCPCS: 43239; G0121; J2704; J7120